=== PATIENT | female | born 1995 ===

== ENCOUNTER 2018-08-17 10:54 | Emergency (ER) | payer OTHER ==
[~2018-08-17] VITALS: Ht 154.9 cm; Wt 99.8 kg
[2018-08-17] MEDS ORDERED: MOTION RELIEF25 MG PO (12:39)
== END 2018-08-17 12:46 | disposition home or self-care (01) ==
LOC: ER 10:54
DX: H81.393 Other peripheral vertigo, bilateral (principal); F17.210 Nicotine dependence, cigarettes, uncomplicated
CPT/HCPCS: 96361; 96374; 99283-25; J2405; J7030